=== PATIENT | female | born 1990 | race Caucasian/White ===

== ENCOUNTER 2018-01-22 07:13 | Inpatient (IN) | payer OTHER ==
[~2018-01-22] VITALS: Ht 165.1 cm; Wt 72.6 kg
[2018-01-22] MEDS ORDERED: PREN-380 PO (07:54)
[2018-01-22] MEDS ORDERED: CITRIC ACID/SODIUM CITRATE 30 ML UDC PO SCH (08:07)
[2018-01-22] MEDS: LACTATED RINGERS 1,000 ML IV SCH ×2 (08:26→10:11)
--- NOTE | 2018-01-22 09:01 | NUR ---
PATIENT HAS BEEN SCREENED AND CATEGORIZED LOW NUTRITION RISK. PATIENT WILL BE SEEN WITHIN 7 DAYS OF ADMISSION. 01/28/[address]
[2018-01-22 09:10] LABS: APPEARANCE,URINE CLEAR (CLEAR); BILIRUBIN,URINE NEGATIVE (NEGATIVE); BLOOD, URINE NEGATIVE (NEGATIVE); COLOR,URINE YELLOW (YELLOW); LEUKOCYTE ESTERASE ,URINE TRACE (NEGATIVE); NITRITE, URINE NEGATIVE (NEGATIVE); UGLUCOSE NEGATIVE (NEGATIVE)
[2018-01-22 09:12] LABS: BASOPHILS % (AUTO) 0.5 % (0.0-2.0); EOSINOPHILS # (AUTO) 0.2 K/uL (0-0.4); EOSINOPHILS % (AUTO) 3.3 % (0.0-4.0); HEMOGLOBIN 11.4 g/dL (12.0-16.0); LYMPHOCYTES # (AUTO) 1.4 K/uL (2.5-16.5); LYMPHOCYTES % (AUTO) 18.8 % (20.5-51.1); MEAN CORPUSCULAR HEMOGLOBIN 28 pg (27-31); MEAN CORPUSCULAR HGB CONC 33 g/dL (33-37); MEAN CORPUSCULAR VOLUME 86.3 fL (80-94); MONOCYTES # (AUTO) 0.4 K/uL (0.8-1.0); MONOCYTES % (AUTO) 5.8 % (1.7-9.3); NEUTROPHILS # (AUTO) 5.4 K/uL (1.8-7.7); NEUTROPHILS % (AUTO) 71.6 % (42.2-75.2); PLATELET COUNT (AUTO) 138 K/uL (140-450); RED BLOOD CELL COUNT(AUTO) 4.06 MIL/uL (4.20-5.40); RED CELL DISTRIBUTION WIDTH 13.7 % (11.6-13.7); WHITE BLOOD COUNT (AUTO) 7.6 K/uL (4.8-10.8)
[2018-01-22 09:21] LABS: RBC,URINE NONE SEEN /HPF (0-5)
[2018-01-22] MEDS ORDERED: OXYTOCIN 10 UNITS/ML VIAL ONE ×2 (10:30→14:25)
[2018-01-22] MEDS ORDERED: MIDAZOLAM 2 MG/2 ML VIAL ONE ×2 (10:41→12:16)
[2018-01-22] MEDS ORDERED: MORPHINE PRES FREE 2 MG/2 ML 2 mL UD SYRINGE ONE (10:41)
[2018-01-22] MEDS ORDERED: OXYTOCIN 20 UNITS in LACTATED RINGERS 1,000 ML IV SCH (11:03)
[2018-01-22] MEDS ORDERED: HYDROmorphone 1 MG/ML AMP IVP PRN ×2 (11:05→14:40)
[2018-01-22] MEDS ORDERED: diphenhydrAMINE 50 MG/ML VIAL IVP PRN ×2 (11:05)
[2018-01-22] MEDS ORDERED: NALBUPHINE 10 MG/ML AMP IVP PRN (11:05)
[2018-01-22] MEDS ORDERED: MEPERIDINE 25 MG/ML SYR IVP PRN (11:05)
[2018-01-22] MEDS ORDERED: NALOXONE 0.4 MG/ML VIAL IVP PRN ×3 (11:05)
[2018-01-22] MEDS ORDERED: ONDANSETRON 4 MG/2 ML VIAL IVP PRN ×2 (11:05)
[2018-01-22] MEDS ORDERED: KETOROLAC 30 MG/ML VIAL IM/IVP SCH (12:00)
[2018-01-22] MEDS ORDERED: MEASLES, MUMPS, AND RUBELLA 1 VIAL SQVAC PRN (14:40)
[2018-01-22] MEDS ORDERED: ONDANSETRON 4 MG/2 ML VIAL ONE (14:42)
[2018-01-22] MEDS: OXYTOCIN 20 UNITS in LACTATED RINGERS 1,000 ML IV SCH (20:33)
[2018-01-23] MEDS: OXYTOCIN 20 UNITS in LACTATED RINGERS 1,000 ML IV SCH (05:03)
[2018-01-23 08:22] LABS: BASOPHILS # (AUTO) 0.1 K/uL (0.00-0.22); BASOPHILS % (AUTO) 0.4 % (0.0-2.0); EOSINOPHILS # (AUTO) 0.1 K/uL (0-0.4); EOSINOPHILS % (AUTO) 0.4 % (0.0-4.0); HEMATOCRIT 34.1 % (36-48); LYMPHOCYTES # (AUTO) 0.9 K/uL (2.5-16.5); LYMPHOCYTES % (AUTO) 7.5 % (20.5-51.1); MEAN CORPUSCULAR HEMOGLOBIN 28 pg (27-31); MEAN CORPUSCULAR HGB CONC 32 g/dL (33-37); MEAN CORPUSCULAR VOLUME 86.2 fL (80-94); MONOCYTES # (AUTO) 0.5 K/uL (0.8-1.0); MONOCYTES % (AUTO) 4.1 % (1.7-9.3); NEUTROPHILS # (AUTO) 10.8 K/uL (1.8-7.7); NEUTROPHILS % (AUTO) 87.6 % (42.2-75.2); PLATELET COUNT (AUTO) 138 K/uL (140-450); RED BLOOD CELL COUNT(AUTO) 3.96 MIL/uL (4.20-5.40); RED CELL DISTRIBUTION WIDTH 13.6 % (11.6-13.7); WHITE BLOOD COUNT (AUTO) 12.3 K/uL (4.8-10.8)
[2018-01-23] MEDS: KETOROLAC 30 MG/ML VIAL IVP PRN ×2 (09:52→17:18)
[2018-01-23] MEDS ORDERED: ACETAMINOPHEN 325 MG TAB PO PRN (22:00)
[2018-01-24] MEDS ORDERED: SODIUM PHOSPHATE 118 ML ENEM RC PRN (08:00)
[2018-01-24] MEDS ORDERED: BISACODYL 5 MG TABEC PO PRN (08:00)
[2018-01-24] MEDS: SIMETHICONE 80 MG TAB.CHEW PO SCH ×4 (08:12→23:28)
[2018-01-24] MEDS: DOCUSATE SODIUM 100 MG GELCAP PO SCH (08:12)
[2018-01-24] MEDS: oxyCODONE/APAP 5/325 MG 1 TAB TAB PO PRN ×2 (08:13→17:37)
[2018-01-24] MEDS: IBUPROFEN 600 MG TAB PO PRN (12:06)
[2018-01-25] MEDS: SIMETHICONE 80 MG TAB.CHEW PO SCH ×4 (01:52→17:30)
[2018-01-25] MEDS: oxyCODONE/APAP 5/325 MG 1 TAB TAB PO PRN ×2 (08:16→17:30)
[2018-01-25] MEDS: DOCUSATE SODIUM 100 MG GELCAP PO SCH (08:16)
[2018-01-25] MEDS: IBUPROFEN 600 MG TAB PO PRN (12:13)
[2018-01-26] MEDS: DOCUSATE SODIUM 100 MG GELCAP PO SCH (09:33)
[2018-01-26] MEDS ORDERED: FERR325E14 PO (13:23)
[2018-01-26] MEDS ORDERED: IBUP-1842 PO (13:24)
== END 2018-01-26 15:35 | disposition home or self-care (01) | DRG 540 ==
LOC: MLD 07:13 → MFCC 10:50
PROVIDERS: ADMIT Obstetrics & Gynecology; ATTEND Obstetrics & Gynecology
PROC: 10D00Z1 Extraction of Products of Conception, Low, Open Approach (ICD-10-PCS; principal; 2018-01-22 10:30)
PROC: 3E0234Z Introduction of Serum, Toxoid and Vaccine into Muscle, Percutaneous Approach (ICD-10-PCS; 2018-01-24)
DX: O34.211 Maternal care for low transverse scar from previous cesarean delivery (principal); Z23 Encounter for immunization; Z37.0 Single live birth; Z3A.38 38 weeks gestation of pregnancy
CPT/HCPCS: 36415; 81001; 85025; 86592; 86886; 86900; 86901; 87081; 87086; 90715; C1758; J0690; J1885; J2250; J2270; J2405; J2590; J7060; J7120